=== PATIENT | male | born 1955 | race Caucasian/White ===

== ENCOUNTER → 2020-11-13 08:07 | Outpatient (CLI) | payer BC ==
[~2020-11-13 08:07] MED LIST: BAYER CHEWABLE81 MG PO; DECADRON4 MG PO; FLOMAX0.4 MG PO; LOTREL 5/20 MG1 CAP; MELATONIN 3 MG1 TAB PO; OMEPRAZOLE40 MG PO; UNITHROID100 MCG PO; VITAMIN C PO; VITAMIN D325 MC1 PO
== END | disposition home or self-care (01) ==
LOC: D.RT 08:07
DX: R06.09 Other forms of dyspnea (principal); Z11.52 Encounter for screening for COVID-19

== ENCOUNTER → 2020-12-20 09:52 | Outpatient (CLI) | payer MEDICARE, BC ==
[2020-08-17 11:19] VITALS: BMI 27.2
--- NOTE | ~2020-12-20 | EC ---
PATIENT:ZEYNEP VILLAREAL DATE OF SERVICE: 12/20/20 SEX: M MEDICAL RECORD: [id number] DATE OF : 55 LOCATION:[facility] AGE OF PATIENT: 64 ADMISSION DATE: 12/20/20 REFERRING PHYSICIAN: INTERPRETING PHYSICIAN: BRODERICK CASON MD ECHOCARDIOGRAM REPORT ECHO CHARGES 4 ECHO COMPLETE Date: 12/20/20 CLINICAL DIAGNOSIS: PULMONARY HTN ECHOCARDIOGRAPHIC MEASUREMENTS (adult normal given) AC root (d.<3.7cm) 3.7 cm LV Septum d (<1.2 cm> 1.3 cm Valve Excursion 1.8 cm LV Septum (systole) 1.9 cm Left Atria (s.<4.0cm> 3.7 cm LVPW d(<1.2cm) 1.2 cm RV (d.<2.3cm) 2.7 cm LVPW (sytole) 1.5 cm LV diastole(<5.6CM) 4.6 cm MV E-F(>70mm/sec) cm LV systole 3.0 cm LVOT Diameter 1.6 cm MV exc.(>10mm) 1.3 cm Est.ejection fraction (50-75%) % DOPPLER: LVIT cm/sec A 83 cm/sec E 101 cm/sec LA cm/sec RVSP 26 mmHg LVOT 99 cm/sec AOP1/2T m/s Asc. Ao 122 cm/sec RVOT 60 cm/sec RA cm/sec PA 92 cm/sec AV Gradient Peak 6.0 mmHg AV Mean 2.9 mmHg AV Area 1.6 cm MV Gradient Peak 5.6 mmHg MV Mean 2.2 mmHg MV Area cm COMMENTS: Lining Feller Blindstitch: [facility] Hand Violin Maker: 3 Dr. Dumas TAPE# Pericardial Effusion N DATE OF SERVICE: Adequate 2D, color flow imaging, spectral Doppler, and M-Mode. FINDINGS: Mild LVH. LV internal dimension is normal. Wall motion is normal. EF is greater than or equal to 55%. Aortic valve is tricuspid. No evidence of stenosis by Doppler interrogation. Left atrium is normal. Mitral valve shows no prolapse. Trace MR. Right side is grossly normal. Trace TR. TRANSINT:[id number] Voice Confirmation ID: [id number] DOCUMENT ID: [id number] ECHOCARDIOGRAM REPORT [id number] ZEYNEP VILLAREAL BRODERICK CASON MD CC: [id number] DICTATION DATE: 12/20/20 1209 MILL LABORER: 12/20/201915 [facility] [address] [id number]
== END | disposition home or self-care (01) ==
LOC: D.ECHO 09:52
PROVIDERS: ATTEND Internal Medicine Pulmonary Disease
DX: I27.20 Pulmonary hypertension, unspecified (principal)